=== PATIENT | female | born 1940 | race Caucasian/White ===

== ENCOUNTER 2016-07-05 17:02 | Inpatient (IN) | payer OTHER ==
[~2016-07-05] VITALS: Ht 165.1 cm; Wt 149.0 kg
[2016-07-05 17:43] LABS: HEMATOCRIT 37.6 % (36.0-46.0); MCH 30.4 PG (29.0-34.0); MCHC 33.2 G/DL (30.0-36.0); MCV 91.5 FL (83-99); MEAN PLAT.VOLUME 8.9 uM^3 (9.5-12.4); PLATELET COUNT 212 K/uL (156-360); RBC DIS.WIDTH-CV 14.7 % (11.8-14.6); RBC DIS.WIDTH-SD 47.5 % (39-53); RED BLOOD COUNT 4.11 M/uL (3.80-5.20); WHITE BLOOD COUNT 10.1 K/uL (4.1-10.2)
[2016-07-05 18:00] LABS: CHLORIDE 106 mEq/L (99-109); SODIUM 139 mEq/L (136-147)
[2016-07-05 18:02] LABS: GLUCOSE 126 mg/dL (70-99)
[2016-07-05 18:03] LABS: ANION GAP 10 MEQ/L (2-14)
[2016-07-05 18:05] LABS: GFR ESTIMATE (CALCULATED) 47 mL/min/
[2016-07-05 18:06] LABS: UREA NITROGEN (BUN) 33 mg/dL (9-23)
[2016-07-05 18:07] LABS: TROP-I INTERPRETATION INDETERMINATE; TROPONIN-I 0.32 ng/mL (0.0-0.30)
[2016-07-05 19:47] LABS: PROTHROMBIN TIME 10.5 (9.2-11.2); PTT 29.4 (25-32)
[2016-07-05] MEDS ORDERED: METOPROLOL TART25 MG PO (20:38)
[2016-07-05] MEDS ORDERED: PRAMIPEXOLE DIHY1 MG PO (20:38)
[2016-07-05] MEDS ORDERED: HYDROCODON-ACE1 EAC9 PO (20:38)
[2016-07-05] MEDS ORDERED: ZOLOFT50 MG PO (20:38)
[2016-07-05] MEDS ORDERED: XANAX0.5 MG PO (20:39)
[2016-07-05] MEDS ORDERED: TESSALON PERLE100 MG PO (20:39)
[2016-07-05] MEDS ORDERED: LISINOPRIL2.5 MG PO (20:40)
[2016-07-05] MEDS ORDERED: GLIMEPIRIDE2 MG PO (20:40)
[2016-07-05] MEDS ORDERED: ROCALTROL0.25 MCG PO (20:40)
[2016-07-05] MEDS ORDERED: BUMEX1 MG PO (20:40)
[2016-07-05] MEDS ORDERED: PROAIR HFA8.5 GM IH (20:41)
[2016-07-05] MEDS ORDERED: AMBIEN5 MG PO (20:41)
[2016-07-05] MEDS ORDERED: ALLOPURINOL100 MG PO (20:41)
[2016-07-05] MEDS ORDERED: VITAMIN D32000 UNI1 PO (20:42)
[2016-07-05] MEDS ORDERED: CORTISONE57 GM TP (20:42)
[2016-07-05 23:26] VITALS: BP 178/86
[2016-07-06] VITALS (7 sets, daily range): BP systolic 133–178; BP diastolic 70–92
[2016-07-06 01:07] LABS: TROP-I INTERPRETATION INDETERMINATE; TROPONIN-I 0.45 ng/mL (0.0-0.30)
[2016-07-06 06:53] LABS: HEMATOCRIT 34.7 % (36.0-46.0); MCH 30.1 PG (29.0-34.0); MCHC 32.6 G/DL (30.0-36.0); MCV 92.5 FL (83-99); MEAN PLAT.VOLUME 9.2 uM^3 (9.5-12.4); PLATELET COUNT 167 K/uL (156-360); RBC DIS.WIDTH-CV 15.1 % (11.8-14.6); RBC DIS.WIDTH-SD 51.5 % (39-53); RED BLOOD COUNT 3.75 M/uL (3.80-5.20); WHITE BLOOD COUNT 8.6 K/uL (4.1-10.2)
[2016-07-06 07:09] LABS: D-DIMER ELISA 0.64 mg/L FEU (< 0.57)
[2016-07-06 07:28] LABS: TROP-I INTERPRETATION INDETERMINATE; TROPONIN-I 0.43 ng/mL (0.0-0.30)
[2016-07-06 08:28] LABS: ALKALINE PHOSPHATASE 51 IU/L (3-129); ANION GAP 9 MEQ/L (2-14); CHLORIDE 107 MEQ/L (99-109); GFR ESTIMATE (CALCULATED) 57 mL/min/; GLUCOSE 79 mg/dL (70-99); POTASSIUM 4.7 MEQ/L (3.7-5.4); SAMPLE HEMOLYSIS CHECK 0; SAMPLE ICTERIC CHECK 0; SAMPLE LIPEMIA CHECK 0; SODIUM 141 MEQ/L (136-147); TOTAL BILIRUBIN 0.4 MG/DL (0.0-1.0); UREA NITROGEN (BUN) 28 mg/dL (9-23)
[2016-07-06 12:03] LABS: POINT-OF-CARE METER ID UU13113698
[2016-07-06 12:52] LABS: INTER. NORMALIZED RATIO 1.1; PROTHROMBIN TIME 10.8 (9.2-11.2)
[2016-07-06 15:37] LABS: POINT-OF-CARE METER ID UU13113819
[2016-07-06 16:23] LABS: PROTHROMBIN TIME 31.3 (9.2-11.2)
[2016-07-06 16:24] LABS: PTT > 150.0 (25-32)
[2016-07-06 17:31] LABS: POINT-OF-CARE METER ID UU14174216
[2016-07-06 21:37] LABS: POINT-OF-CARE METER ID UU13113698
[2016-07-07 00:20] VITALS: BP 128/88
[2016-07-07 03:08] VITALS: BP 133/65
[2016-07-07 06:58] LABS: EOSINOPHIL (%) 2.2 % (0-5); EOSINOPHIL COUNT 0.2 K/uL (0-0.3); HEMATOCRIT 34.2 % (36.0-46.0); IMMATURE GRANULOCYTE (%) 0.2 % (0.0-0.7); LYMPHOCYTE COUNT 1.8 K/uL (1.0-2.8); MCH 30.3 PG (29.0-34.0); MCHC 33.3 G/DL (30.0-36.0); MEAN PLAT.VOLUME 9.3 uM^3 (9.5-12.4); MONOCYTE (%) 6.4 % (3-12); MONOCYTE COUNT 0.6 K/uL (0-0.8); NEUTROPHIL (%) 71.4 % (45-76); NEUTROPHIL COUNT 6.6 K/uL (1.8-6.4); PLATELET COUNT 170 K/uL (156-360); RBC DIS.WIDTH-SD 49.8 % (39-53); RED BLOOD COUNT 3.76 M/uL (3.80-5.20); WHITE BLOOD COUNT 9.2 K/uL (4.1-10.2)
[2016-07-07 07:30] LABS: ALKALINE PHOSPHATASE 49 IU/L (3-129); ANION GAP 10 MEQ/L (2-14); CHLORIDE 101 MEQ/L (99-109); GFR ESTIMATE (CALCULATED) 47 mL/min/; POTASSIUM 3.8 MEQ/L (3.7-5.4); SAMPLE HEMOLYSIS CHECK 0; SAMPLE ICTERIC CHECK 0; SAMPLE LIPEMIA CHECK 0; SODIUM 137 MEQ/L (136-147); UREA NITROGEN (BUN) 24 mg/dL (9-23)
[2016-07-07 07:31] LABS: GLUCOSE 118 mg/dL (70-99); TOTAL BILIRUBIN 0.5 MG/DL (0.0-1.0)
[2016-07-07] MEDS ORDERED: BRILINTA90 MG PO (07:39)
[2016-07-07] MEDS ORDERED: ATORVASTATIN CA80 MG PO (07:39)
[2016-07-07] MEDS ORDERED: AMLODIPINE BESYL5 MG PO (07:39)
[2016-07-07 07:45] VITALS: BP 133/63
[2016-07-07 08:10] LABS: POINT-OF-CARE METER ID UU13113781; POINT-OF-CARE USER ID NUTSLF44
== END 2016-07-07 11:33 | disposition home or self-care (01) | DRG 251 ==
LOC: EME 17:02 → EDOF 21:31 → 4EAST 21:31
PROVIDERS: Hospitalist; Internal Medicine Cardiovascular Disease; Nurse Practitioner Adult Health; Pediatrics; Physician Assistant
PROC: 4A023N7 Measurement of Cardiac Sampling and Pressure, Left Heart, Percutaneous Approach (ICD-10-PCS; principal; 2016-07-06)
PROC: 02713ZZ Dilation of Coronary Artery, Two Arteries, Percutaneous Approach (ICD-10-PCS; principal; 2016-07-06)
PROC: B2111ZZ Fluoroscopy of Multiple Coronary Arteries using Low Osmolar Contrast (ICD-10-PCS; principal; 2016-07-06)
PROC: 5A09357 Assistance with Respiratory Ventilation, Less than 24 Consecutive Hours, Continuous Positive Airway Pressure (ICD-10-PCS; principal; 2016-07-06)
PROC: B2151ZZ Fluoroscopy of Left Heart using Low Osmolar Contrast (ICD-10-PCS; principal; 2016-07-06)
DX: I21.4 Non-ST elevation (NSTEMI) myocardial infarction (principal); I45.2 Bifascicular block; Z68.43 Body mass index [BMI] 50.0-59.9, adult; F33.9 Major depressive disorder, recurrent, unspecified; I25.110 Atherosclerotic heart disease of native coronary artery with unstable angina pectoris; I24.9 Acute ischemic heart disease, unspecified; E66.01 Morbid (severe) obesity due to excess calories; J44.9 Chronic obstructive pulmonary disease, unspecified; I10 Essential (primary) hypertension; F41.9 Anxiety disorder, unspecified; K21.9 Gastro-esophageal reflux disease without esophagitis; E11.65 Type 2 diabetes mellitus with hyperglycemia; M10.9 Gout, unspecified; E78.5 Hyperlipidemia, unspecified; G47.33 Obstructive sleep apnea (adult) (pediatric); I50.9 Heart failure, unspecified; I77.819 Aortic ectasia, unspecified site; J98.4 Other disorders of lung; M19.90 Unspecified osteoarthritis, unspecified site; G25.81 Restless legs syndrome; K44.9 Diaphragmatic hernia without obstruction or gangrene; Z79.82 Long term (current) use of aspirin; Z79.02 Long term (current) use of antithrombotics/antiplatelets; Z87.11 Personal history of peptic ulcer disease; Z96.643 Presence of artificial hip joint, bilateral; Z88.5 Allergy status to narcotic agent; Z83.3 Family history of diabetes mellitus; Z83.6 Family history of other diseases of the respiratory system
CPT/HCPCS: 71020; 80048; 80053; 82948; 83880; 84484; 85025; 85027; 85347; 85379; 85610; 85730; 86850; 86900; 86901; 93005; 93970; 94640; 94640 76; 94660; 99202; 99281; 99285; C1725; C1769; C1874; C1887; J0360; J0583; J1644; J1815; J2250; J3010; J7030; J7050

== ENCOUNTER 2016-10-25 18:51 | Inpatient (IN) | payer OTHER ==
[~2016-10-25] VITALS: Ht 165.1 cm; Wt 146.3 kg
[~2016-10-25 18:51] MED LIST: ALLOPURINOL100 MG PO; AMBIEN5 MG PO; AMLODIPINE BESYL5 MG PO; ATORVASTATIN CA80 MG PO; BRILINTA90 MG PO; BUMEX1 MG PO; CORTISONE57 GM TP; GLIMEPIRIDE2 MG PO; HYDROCODON-ACE1 EAC9 PO; LISINOPRIL2.5 MG PO; METOPROLOL TART25 MG PO; PRAMIPEXOLE DIHY1 MG PO; PROAIR HFA8.5 GM IH; ROCALTROL0.25 MCG PO; TESSALON PERLE100 MG PO; VITAMIN D32000 UNI1 PO; XANAX0.5 MG PO; ZOLOFT50 MG PO
[2016-10-25 21:03] LABS: HEMATOCRIT 36.4 % (36.0-46.0); MCH 31.3 PG (29.0-34.0); MCHC 33.2 G/DL (30.0-36.0); MCV 94.1 FL (83-99); MEAN PLAT.VOLUME 8.5 uM^3 (9.5-12.4); PLATELET COUNT 235 K/uL (156-360); RBC DIS.WIDTH-CV 14.2 % (11.8-14.6); RBC DIS.WIDTH-SD 48.2 % (39-53); RED BLOOD COUNT 3.87 M/uL (3.80-5.20); WHITE BLOOD COUNT 11.5 K/uL (4.1-10.2)
[2016-10-25 21:12] LABS: CHLORIDE 102 mEq/L (99-109); POTASSIUM 4.6 mEq/L (3.7-5.4); SODIUM 140 mEq/L (136-147)
[2016-10-25 21:13] LABS: GLUCOSE 117 mg/dL (70-99)
[2016-10-25 21:15] LABS: ANION GAP 12 MEQ/L (2-14)
[2016-10-25 21:17] LABS: GFR ESTIMATE (CALCULATED) 42 mL/min/; PROTHROMBIN TIME 10.8 (9.2-11.2); PTT 28.2 (25-32)
[2016-10-25 21:18] LABS: UREA NITROGEN (BUN) 38 mg/dL (9-23)
[2016-10-25 21:24] LABS: TROP-I INTERPRETATION NEGATIVE; TROPONIN-I 0.01 ng/mL (0.0-0.30)
[2016-10-25 21:31] LABS: INTER. NORMALIZED RATIO 1.1
[2016-10-25] MEDS ORDERED: ZOLOFT100 MG PO (22:57)
[2016-10-25] MEDS ORDERED: LO-DOSE ASPIRIN81 M1 PO (22:58)
[2016-10-25] MEDS ORDERED: METHYLPREDNISOLO4 M1 PO (23:01)
[2016-10-25] MEDS ORDERED: AZITHROMYCIN250 MG PO (23:03)
[2016-10-26 01:13] VITALS: BP 171/66
[2016-10-26 03:59] VITALS: BP 130/58
[2016-10-26 05:22] LABS: HEMATOCRIT 33.2 % (36.0-46.0); MCH 30.9 PG (29.0-34.0); MCHC 32.5 G/DL (30.0-36.0); MCV 94.9 FL (83-99); PLATELET COUNT 249 K/uL (156-360); RBC DIS.WIDTH-SD 48.7 % (39-53); WHITE BLOOD COUNT 10.9 K/uL (4.1-10.2)
[2016-10-26 05:35] LABS: TROP-I INTERPRETATION NEGATIVE; TROPONIN-I < 0.01 ng/mL (0.0-0.30)
[2016-10-26 05:56] LABS: ALKALINE PHOSPHATASE 66 IU/L (3-129); ANION GAP 12 MEQ/L (2-14); CHLORIDE 101 MEQ/L (99-109); GFR ESTIMATE (CALCULATED) 47 mL/min/; GLUCOSE 167 mg/dL (70-99); SAMPLE HEMOLYSIS CHECK 0; SAMPLE ICTERIC CHECK 0; SAMPLE LIPEMIA CHECK 0; SODIUM 140 MEQ/L (136-147); TOTAL BILIRUBIN 0.6 MG/DL (0.0-1.0); UREA NITROGEN (BUN) 37 mg/dL (9-23)
[2016-10-26 07:50] VITALS: BP 156/70
[2016-10-26 08:11] LABS: POINT-OF-CARE METER ID UU14162513
[2016-10-26 09:50] LABS: TROP-I INTERPRETATION NEGATIVE; TROPONIN-I < 0.01 ng/mL (0.0-0.30)
[2016-10-26 11:13] VITALS: BP 131/60
[2016-10-26 15:57] VITALS: BP 152/67
[2016-10-26 19:35] VITALS: BP 140/63
[2016-10-26 21:25] LABS: POINT-OF-CARE METER ID UU13113831
[2016-10-27 03:19] VITALS: BP 144/63
[2016-10-27 07:49] VITALS: BP 141/63
[2016-10-27 08:03] LABS: POINT-OF-CARE METER ID UU13113831
[2016-10-27 08:37] LABS: ANION GAP 12 MEQ/L (2-14); CHLORIDE 99 MEQ/L (99-109); GFR ESTIMATE (CALCULATED) 36 mL/min/; GLUCOSE 113 mg/dL (70-99); POTASSIUM 3.9 MEQ/L (3.7-5.4); SAMPLE HEMOLYSIS CHECK 0; SAMPLE ICTERIC CHECK 0; SAMPLE LIPEMIA CHECK 0; SODIUM 140 MEQ/L (136-147); UREA NITROGEN (BUN) 43 mg/dL (9-23)
[2016-10-27 11:24] VITALS: BP 131/61
[2016-10-27 12:14] LABS: POINT-OF-CARE METER ID UU14162513
[2016-10-27] MEDS ORDERED: DUONEB 2.5-0.5 M3 ML AEROSOL ×2 (13:51→14:33)
[2016-10-27] MEDS ORDERED: LISINOPRIL10 MG PO (13:51)
== END 2016-10-27 16:13 | disposition home or self-care (01) | DRG 292 ==
LOC: EME 18:51 → EDOF 10-26 00:01 → 5WEST 10-26 01:01
PROVIDERS: Emergency Medicine; Hospitalist; Internal Medicine; Internal Medicine Cardiovascular Disease
DX: I50.33 Acute on chronic diastolic (congestive) heart failure (principal); N17.9 Acute kidney failure, unspecified; J44.9 Chronic obstructive pulmonary disease, unspecified; E66.2 Morbid (severe) obesity with alveolar hypoventilation; Z68.43 Body mass index [BMI] 50.0-59.9, adult; E11.8 Type 2 diabetes mellitus with unspecified complications; I10 Essential (primary) hypertension; K21.9 Gastro-esophageal reflux disease without esophagitis; I25.10 Atherosclerotic heart disease of native coronary artery without angina pectoris; M10.9 Gout, unspecified; E78.00 Pure hypercholesterolemia, unspecified; K27.9 Peptic ulcer, site unspecified, unspecified as acute or chronic, without hemorrhage or perforation; M19.90 Unspecified osteoarthritis, unspecified site; G25.81 Restless legs syndrome; F32.9 Major depressive disorder, single episode, unspecified; I51.7 Cardiomegaly; Z90.49 Acquired absence of other specified parts of digestive tract; Z96.643 Presence of artificial hip joint, bilateral
CPT/HCPCS: 71010; 80048; 80053; 82948; 83880; 84484; 85027; 85610; 85730; 93005; 93971; 94640; 94640 76; 94660; 99202; 99281; 99285; J1644; J1940; J3010; J7030

== ENCOUNTER 2016-12-06 13:57 | Observation (INO) | payer OTHER ==
[~2016-12-06] VITALS: Ht 165.1 cm; Wt 146.6 kg
[~2016-12-06 13:57] MED LIST changes: +AZITHROMYCIN250 MG PO; +DUONEB 2.5-0.5 M3 ML AEROSOL; +LISINOPRIL10 MG PO; +LO-DOSE ASPIRIN81 M1 PO; +METHYLPREDNISOLO4 M1 PO; +ZOLOFT100 MG PO
[2016-12-06 14:51] LABS: HEMATOCRIT 30.9 % (36.0-46.0); MCH 30.6 PG (29.0-34.0); MCHC 32.4 G/DL (30.0-36.0); MCV 94.5 FL (83-99); MEAN PLAT.VOLUME 9.1 uM^3 (9.5-12.4); PLATELET COUNT 208 K/uL (156-360); RBC DIS.WIDTH-CV 14.3 % (11.8-14.6); RBC DIS.WIDTH-SD 49.4 % (39-53); RED BLOOD COUNT 3.27 M/uL (3.80-5.20); WHITE BLOOD COUNT 10.3 K/uL (4.1-10.2)
[2016-12-06 15:02] LABS: CHLORIDE 99 mEq/L (99-109); SODIUM 135 mEq/L (136-147)
[2016-12-06 15:04] LABS: GLUCOSE 160 mg/dL (70-99)
[2016-12-06 15:05] LABS: ANION GAP 9 MEQ/L (2-14)
[2016-12-06 15:08] LABS: GFR ESTIMATE (CALCULATED) 24 mL/min/
[2016-12-06 15:09] LABS: UREA NITROGEN (BUN) 62 mg/dL (9-23)
[2016-12-06 15:12] LABS: TROP-I INTERPRETATION NEGATIVE; TROPONIN-I 0.01 ng/mL (0.0-0.30)
[2016-12-06 17:41] LABS: ADD MIUA? YES; BILIRUBIN NEGATIVE; BLOOD NEGATIVE; COLOR YELLOW ((YELLOW)); GLUCOSE (STRIP) NEGATIVE; KETONES NEGATIVE; LEUKOCYTES NEGATIVE; NITRITE NEGATIVE; PROTEIN (STRIP) NEGATIVE; SPECIFIC GRAVITY 1.013 (1.000-1.030); UROBILINOGEN 0.2 MG/DL (0.2-1.0)
[2016-12-06 17:47] LABS: BACTERIA RARE /HPF; EPITHELIAL CELLS RARE /HPF; MUCUS TRACE /LPF; RED BLOOD CELLS 0-5 /HPF (0-5); UCUL ADDED? NO; WHITE BLOOD CELLS 0-5 /HPF (0-5)
[2016-12-06] MEDS ORDERED: BUMEX2 MG PO (19:20)
[2016-12-06 19:51] VITALS: BP 147/64
[2016-12-06 21:17] LABS: TROP-I INTERPRETATION NEGATIVE; TROPONIN-I 0.01 ng/mL (0.0-0.30)
[2016-12-06 22:00] LABS: POINT-OF-CARE METER ID UU14162513
[2016-12-06 22:34] LABS: ALKALINE PHOSPHATASE 73 IU/L (3-129); LIPASE 52 U/L (1.0-51.0); TOTAL BILIRUBIN 0.4 MG/DL (0.0-1.0)
[2016-12-06 23:53] VITALS: BP 136/77
[2016-12-07 02:52] LABS: HEMATOCRIT 30.2 % (36.0-46.0); MCH 31.1 PG (29.0-34.0); MCHC 33.1 G/DL (30.0-36.0); MCV 93.8 FL (83-99); MEAN PLAT.VOLUME 8.9 uM^3 (9.5-12.4); PLATELET COUNT 169 K/uL (156-360); RBC DIS.WIDTH-CV 14.1 % (11.8-14.6); RBC DIS.WIDTH-SD 47.7 % (39-53); RED BLOOD COUNT 3.22 M/uL (3.80-5.20); WHITE BLOOD COUNT 8.4 K/uL (4.1-10.2)
[2016-12-07 03:01] LABS: CHLORIDE 102 mEq/L (99-109); POTASSIUM 4.9 mEq/L (3.7-5.4); SODIUM 138 mEq/L (136-147)
[2016-12-07 03:02] LABS: GLUCOSE 124 mg/dL (70-99)
[2016-12-07 03:04] LABS: ANION GAP 8 MEQ/L (2-14)
[2016-12-07 03:06] LABS: GFR ESTIMATE (CALCULATED) 33 mL/min/
[2016-12-07 03:07] LABS: UREA NITROGEN (BUN) 54 mg/dL (9-23)
[2016-12-07 03:14] LABS: TROP-I INTERPRETATION NEGATIVE; TROPONIN-I < 0.01 ng/mL (0.0-0.30)
[2016-12-07 04:36] VITALS: BP 137/61
[2016-12-07 06:35] LABS: POINT-OF-CARE METER ID UU14162513
[2016-12-07 08:18] VITALS: BP 137/60
== END 2016-12-07 11:40 | disposition home or self-care (01) ==
LOC: EME 13:57 → EDOF 18:41 → 5WEST 19:51
PROVIDERS: Emergency Medicine; Hospitalist; Internal Medicine
DX: R07.9 Chest pain, unspecified (principal); N17.9 Acute kidney failure, unspecified; I10 Essential (primary) hypertension; Z87.11 Personal history of peptic ulcer disease; E66.01 Morbid (severe) obesity due to excess calories; Z68.43 Body mass index [BMI] 50.0-59.9, adult; G47.33 Obstructive sleep apnea (adult) (pediatric); K21.9 Gastro-esophageal reflux disease without esophagitis; M19.90 Unspecified osteoarthritis, unspecified site; K44.9 Diaphragmatic hernia without obstruction or gangrene; G25.81 Restless legs syndrome; E11.9 Type 2 diabetes mellitus without complications; R60.0 Localized edema; E78.5 Hyperlipidemia, unspecified; R06.02 Shortness of breath; Z96.643 Presence of artificial hip joint, bilateral; Z95.5 Presence of coronary angioplasty implant and graft; Z83.3 Family history of diabetes mellitus; Z82.5 Family history of asthma and other chronic lower respiratory diseases
CPT/HCPCS: 71020; 80048; 80076; 81003; 82948; 83690; 83880; 84484; 85027; 93005; 93970; 94640 76; 94760; 94799; 99281; 99285; G0378; J1644; J7040

== ENCOUNTER 2017-02-14 14:54 | Observation (INO) | payer OTHER ==
[~2017-02-14] VITALS: Ht 165.1 cm; Wt 145.2 kg
[~2017-02-14 14:54] MED LIST changes: +BUMEX2 MG PO
[2017-02-14 16:34] LABS: HEMATOCRIT 31.6 % (36.0-46.0); MCH 30.4 PG (29.0-34.0); MCHC 32.3 G/DL (30.0-36.0); PLATELET COUNT 201 K/uL (156-360); RBC DIS.WIDTH-CV 13.6 % (11.8-14.6); RBC DIS.WIDTH-SD 46.9 % (39-53); RED BLOOD COUNT 3.36 M/uL (3.80-5.20); WHITE BLOOD COUNT 8.3 K/uL (4.1-10.2)
[2017-02-14 16:39] LABS: INTER. NORMALIZED RATIO 1.1; PROTHROMBIN TIME 11.9 SEC (10.2-12.9)
[2017-02-14 16:42] LABS: PTT 29.2 SEC (25-37)
[2017-02-14 16:45] LABS: CHLORIDE 105 mEq/L (99-109); POTASSIUM 4.9 mEq/L (3.7-5.4); SODIUM 140 mEq/L (136-147)
[2017-02-14 16:47] LABS: GLUCOSE 152 mg/dL (70-99)
[2017-02-14 16:48] LABS: ANION GAP 10 MEQ/L (2-14)
[2017-02-14 16:51] LABS: GFR ESTIMATE (CALCULATED) 39 mL/min/
[2017-02-14 16:52] LABS: UREA NITROGEN (BUN) 30 mg/dL (9-23)
[2017-02-14 21:10] LABS: TROP-I INTERPRETATION NEGATIVE; TROPONIN-I < 0.01 ng/mL (0.0-0.30)
[2017-02-15] VITALS (7 sets, daily range): BP systolic 145–193; BP diastolic 63–79
[2017-02-15 02:56] LABS: POINT-OF-CARE METER ID UU13113831
[2017-02-15 05:27] LABS: EOSINOPHIL (%) 3.8 % (0-5); EOSINOPHIL COUNT 0.3 K/uL (0-0.3); HEMATOCRIT 28.2 % (36.0-46.0); IMMATURE GRANULOCYTE (%) 0.4 % (0.0-0.7); INSTRUMENT ABS NEUTROPHIL CT 5.3 K/uL; LYMPHOCYTE COUNT 1.8 K/uL (1.0-2.8); MCH 31.6 PG (29.0-34.0); MCHC 33.3 G/DL (30.0-36.0); MCV 94.9 FL (83-99); MEAN PLAT.VOLUME 9.3 uM^3 (9.5-12.4); MONOCYTE (%) 7.3 % (3-12); MONOCYTE COUNT 0.6 K/uL (0-0.8); NEUTROPHIL (%) 66.3 % (45-76); NEUTROPHIL COUNT 5.3 K/uL (1.8-6.4); PLATELET COUNT 182 K/uL (156-360); RBC DIS.WIDTH-CV 13.7 % (11.8-14.6); RBC DIS.WIDTH-SD 47.1 % (39-53); RED BLOOD COUNT 2.97 M/uL (3.80-5.20); WHITE BLOOD COUNT 8.1 K/uL (4.1-10.2)
[2017-02-15 06:11] LABS: ALKALINE PHOSPHATASE 71 IU/L (3-129); ANION GAP 6 MEQ/L (2-14); CHLORIDE 105 MEQ/L (99-109); DIRECT BILIRUBIN 0.1 mg/dL (0.0-0.3); GFR ESTIMATE (CALCULATED) 42 mL/min/; POTASSIUM 4.3 MEQ/L (3.7-5.4); SAMPLE HEMOLYSIS CHECK 0; SAMPLE ICTERIC CHECK 0; SAMPLE LIPEMIA CHECK 0; SODIUM 140 MEQ/L (136-147); TOTAL BILIRUBIN 0.5 MG/DL (0.0-1.0); UREA NITROGEN (BUN) 30 mg/dL (9-23)
[2017-02-15 06:20] LABS: GLUCOSE 111 mg/dL (70-99)
[2017-02-15 06:49] LABS: METH RESISTANT S AUREUS PCR NEGATIVE (NEGATIVE)
[2017-02-15 06:54] LABS: PROBE CHECK PASS; SPECIMEN PROCESSING CONTROL PASS
[2017-02-15] MEDS ORDERED: CEPHALEXIN500 MG PO (10:12)
== END 2017-02-15 14:01 | disposition home or self-care (01) ==
LOC: EME 14:54 → EDOF 23:11 → 5WEST 23:11 → EDOF 23:11 → CANRESERV 23:12 → ENRESERV 23:12 → 5WEST 02-15 01:43
PROVIDERS: Emergency Medicine; Hospitalist
DX: R55 Syncope and collapse (principal); I45.10 Unspecified right bundle-branch block; D64.9 Anemia, unspecified; L03.116 Cellulitis of left lower limb; L03.115 Cellulitis of right lower limb; E66.01 Morbid (severe) obesity due to excess calories; G47.33 Obstructive sleep apnea (adult) (pediatric); E11.9 Type 2 diabetes mellitus without complications; I10 Essential (primary) hypertension; E78.5 Hyperlipidemia, unspecified; K25.9 Gastric ulcer, unspecified as acute or chronic, without hemorrhage or perforation; I48.91 Unspecified atrial fibrillation; J44.9 Chronic obstructive pulmonary disease, unspecified; K21.9 Gastro-esophageal reflux disease without esophagitis; F32.9 Major depressive disorder, single episode, unspecified; M19.90 Unspecified osteoarthritis, unspecified site; Z96.643 Presence of artificial hip joint, bilateral; Z90.49 Acquired absence of other specified parts of digestive tract; F41.9 Anxiety disorder, unspecified; Z79.82 Long term (current) use of aspirin
CPT/HCPCS: 70450; 80048; 80076; 82948; 84484; 85025; 85027; 85610; 85730; 87641; 93005; 93880; 94640; 94640 76; 94799; 99202; 99281; 99285; G0378; J7030